=== PATIENT | female | born 1985 ===

== ENCOUNTER 2018-01-24 11:15 | Inpatient (IN) | payer OTHER ==
[~2018-01-24] VITALS: Ht 160 cm; Wt 78.0 kg
[2018-01-24] MEDS ORDERED: FOLIC ACID1 MG PO (13:03)
[2018-01-24] MEDS ORDERED: IRON PO (13:03)
[2018-01-28] MEDS ORDERED: HumuLIN R 100 UNIT/1 SUBCUTANEO ×2 (09:21)
[2018-01-28] MEDS ORDERED: NIFEDIPINE ER30 MG PO (09:21)
[2018-01-28] MEDS ORDERED: HUMULIN N100 UNIT/2 SUBCUTANEO ×2 (09:21)
== END 2018-01-28 10:24 | DRG 781 ==
LOC: LDR 11:15 → OB/GYN 11:15 → SURG-SUITE 01-25 12:59 → OB/GYN 01-25 13:31
PROC: 4A1HXCZ Monitoring of Products of Conception, Cardiac Rate, External Approach (ICD-10-PCS; principal; 2018-01-24)
PROC: BY4FZZZ Ultrasonography of Third Trimester, Single Fetus (ICD-10-PCS; 2018-01-24)
PROC: BU4CZZZ Ultrasonography of Uterus and Ovaries (ICD-10-PCS; 2018-01-24)
DX: O24.419 Gestational diabetes mellitus in pregnancy, unspecified control (principal); O60.03 Preterm labor without delivery, third trimester; Z3A.34 34 weeks gestation of pregnancy

== ENCOUNTER 2018-02-13 18:23 | Inpatient (IN) | payer OTHER ==
[~2018-02-13] VITALS: Ht 160 cm; Wt 78.5 kg
[~2018-02-13 18:23] MED LIST: FOLIC ACID1 MG PO; HUMULIN N100 UNIT/2 SUBCUTANEO; HumuLIN R 100 UNIT/1 SUBCUTANEO; IRON PO; NIFEDIPINE ER30 MG PO
[2018-02-13] MEDS ORDERED: PRENATAL 19 TA1 EAC1 PO (21:35)
[2018-02-13] MEDS ORDERED: ALLERGY RELIEF60 MG PO (21:37)
== END 2018-02-18 10:51 | DRG 775 ==
LOC: OB/GYN 18:23 → LDR 18:23 → SURG-SUITE 20:46 → LDR 21:34 → OB/GYN 02-15 09:12
PROC: BY4FZZZ Ultrasonography of Third Trimester, Single Fetus (ICD-10-PCS; 2018-02-13)
PROC: 4A1HXCZ Monitoring of Products of Conception, Cardiac Rate, External Approach (ICD-10-PCS; 2018-02-13)
PROC: 0KQM0ZZ Repair Perineum Muscle, Open Approach (ICD-10-PCS; principal; 2018-02-16)
PROC: 10E0XZZ Delivery of Products of Conception, External Approach (ICD-10-PCS; 2018-02-16)
PROC: 4A033R1 Measurement of Arterial Saturation, Peripheral, Percutaneous Approach (ICD-10-PCS; 2018-02-16)
DX: O70.1 Second degree perineal laceration during delivery (principal); O24.410 Gestational diabetes mellitus in pregnancy, diet controlled; O26.893 Other specified pregnancy related conditions, third trimester; R23.8 Other skin changes; Z37.0 Single live birth; Z3A.37 37 weeks gestation of pregnancy